=== PATIENT | male | born 1975 | race Caucasian/White ===

== ENCOUNTER 2020-02-08 08:36 | Emergency (ER) | payer MEDICAID ==
[~2020-02-08] VITALS: Ht 170.2 cm; Wt 69.0 kg
[~2020-02-08 08:36] MED LIST: ADDEROL; ALBUTEROL; RESPIRADONE
[2020-02-08 08:39] VITALS: BP 148/80
== END 2020-02-08 10:25 | disposition home or self-care (01) ==
LOC: ER 08:36
DX: Z76.0 Encounter for issue of repeat prescription (principal); F32.9 Major depressive disorder, single episode, unspecified; Z59.0 Homelessness
CPT/HCPCS: 99283